=== PATIENT | male | born 1990 | race African-American/Black ===

== ENCOUNTER 2016-02-16 16:09 | Emergency (ER) | payer BC, OTHER ==
[~2016-02-16] VITALS: Ht 180.3 cm; Wt 83.9 kg
--- NOTE | ~2016-02-16 | EKG ---
[place] [address] [facility] [place] [address] ELECTROCARDIOGRAM REPORT Name: MERCEDESCAMRYN Room #: DEP KIKO Dumont#: [id number] Admission: 02/16/16 Attend Phys: Discharge: 02/16/16 Date of : 89 Report #: [id number] THIS REPORT FOR: //name// [facility] ED Test Date: 2016-02-16 Test Time: 16:09:34 Pat Name: CAMRYN MERCEDES Department: Room: Gender: Adjutant General: Blane MACDONALD : 1990 Requested By: Bhavin Tavares Order Number: [id number] MD: Cuba Simpson Measurements Intervals [place] Rate: 108 P: 34 NV: 146 QRS: 61 QRSD: 89 T: 28 QT: 333 QTc: 447 Interpretive Statements Sinus tachycardia ST elev, probable normal early repol pattern No previous ECG available for comparison Electronically Signed On 02-17-2016 8:17:59 CREDIT REVIEW ANALYST by Cuba Simpson [email or web address] <ELECTRONICALLY SIGNED> By: Cuba Simpson MD 02/17/16 0817 1609 1609 Cuba Simpson MD /ERNESTO
[~2016-02-16 16:09] MED LIST: COLACE100 MG PO; PROCTOFOAM-HC 110 GM RECTAL
[2016-02-16] MEDS ORDERED: NAPROSYN500 MG PO (17:06)
[2016-02-16 18:25] VITALS: BP 148/86
== END 2016-02-16 18:31 | disposition home or self-care (01) ==
LOC: ER 16:09
DX: G89.29 Other chronic pain (principal); M25.511 Pain in right shoulder; R07.89 Other chest pain; R00.2 Palpitations